=== PATIENT | male | born 1960 | race Caucasian/White ===

== ENCOUNTER 2016-06-10 09:14 | Emergency (ER) | payer OTHER ==
[2016-06-10 09:20] VITALS: TEMP 98.4
--- NOTE | 2016-06-10 09:52 | CPEKG ---
Heart Rate: 64 RR Interval: 938 P-R Interval: 196 QRSD Interval: 84 QT Interval: 396 QTC Interval: 409 P [place]: 67 QRS [place]: 12 T Wave [place]: 46 EKG Severity - ABNORMAL ECG - EKG Impression: SINUS RHYTHM EKG Impression: PROBABLE LEFT ATRIAL ABNORMALITY EKG Impression: NONSPECIFIC T ABNORMALITIES, LATERAL LEADS Electronically Signed By: Kiki Smith 10-Jun-2016 15:19:13
[2016-06-10] MEDS ORDERED: NS 1,000 ML IV ONE (09:53)
[2016-06-10] MEDS ORDERED: ONDANSETRON 4 MG/2 ML VIAL IVP ONE (09:54)
[2016-06-10] MEDS ORDERED: DIAZEPAM 10 MG/2 ML SYR IVP ONE ×2 (09:54→11:30)
[2016-06-10 09:57] LABS: % IMMATURE GRANULYOCYTES 0.4 % (0.0-1.1); ABSOLUTE IMMATURE GRANULOCYTES 0.05 10^3/uL (0.00-0.10); ADD DIFF? NO; ADD MORPH? NO; ADD SCAN? NO; ATYPICAL LYMPHOCYTE FLAG 0 (0-99); FRAGMENT RBC FLAG 0 (0-99); HEMOGLOBIN 18.4 g/dL (13.7-17.5); LEFT SHIFT FLG 0 (0-99); LIPEMIA HEMOLYSIS FLAG 90 (0-99); MEAN CELL HEMOGLOBIN 30.4 pg (27.9-34.1); MEAN CELL HEMOGLOBIN CONCENTR. 35.4 g/dL (32.4-36.7); MEAN PLATELET VOLUME 8.5 fL (8.7-11.7); PLATELET CLUMPS FLAG 10 (0-99); PLATELET COUNT 255 10^3/uL (150-400); RED BLOOD CELL COUNT 6.05 10^6/uL (4.40-6.38); RED CELL DISTRIBUTION WIDTH 12.2 % (11.5-15.2)
[2016-06-10 10:05] LABS: INR 1.08 (0.83-1.16); PROTIME(PATIENT) 13.9 SEC (12.0-15.0)
[2016-06-10 10:06] LABS: APTT 24.5 SEC (23.0-38.0)
[2016-06-10 10:19] LABS: ANION GAP 12 mEq/L (8-16); CALCIUM 9.6 mg/dL (8.5-10.4); CARBON DIOXIDE 25 mEq/l (22-31); CHLORIDE 103 mEq/L (97-110); CREATININE 0.8 mg/dL (0.7-1.3); GLOMERULAR FILTRATION RATE > 60; GLUCOSE 118 mg/dL (70-100); SODIUM 140 mEq/L (134-144)
--- NOTE | 2016-06-10 10:19 | DX ---
Portable AP Upright Chest, at 10:03 AM CLINICAL HISTORY: 55-year-old male with dizziness and nausea for one day. COMPARISON STUDY: None. FINDINGS: Telemetry monitoring lead lines are present. The cardiac and mediastinal silhouette is norm al. There is no focal infiltrate, atelectasis, pleural effusion, peripheral interstitial edema, or pn eumothorax. The osseous structures are age-appropriate. IMPRESSION: No acute abnormality.
--- NOTE | 2016-06-10 10:29 | EDPHY ---
H & P Stated Complaint: dizzy since yesterday Source: Patient, Family Exam Limitations: No limitations - Personal History Current Tetanus/Diphtheria Vaccine: Unsure Current Tetanus Diphtheria and Acellular Pertussis (TDAP): Unsure - Medical/Surgical History Hx Asthma: No Hx Chronic Respiratory Disease: No Hx Diabetes: No Hx Cardiac Disease: No Hx Renal Disease: No Hx Cirrhosis: No Hx Alcoholism: No Hx HIV/AIDS: No Hx Splenectomy or Spleen Trauma: No Other PMH: Kidney stone, HTN, high chol, gerd - Social History Smoking Status: Former smoker HPI/ROS: CHIEF COMPLAINT: Dizziness, nausea HISTORY OF PRESENT ILLNESS: patient complains of sudden onset of dizziness, spinning sensation and nausea Last evening. It lasted for several minutes and has come and gone since then. Currently not present. It is worse when he lays flat. Improves when he stands up and walks. No headache with this. No chest pain or shortness of breath. No vomiting. Did have a chiropractic evaluation on the neck yesterday. Had no complaints prior to that. No other associated complaints or modifying factors. No anticoagulants. REVIEW OF SYSTEMS: Ten systems reviewed and are negative unless otherwise noted in the HPI EXAMINATION General Appearance: Alert, no distress Head: normocephalic, atraumatic Eyes: Pupils equal and round, no conjunctival pallor or injection , no nystagmus ENT, Mouth: Mucous membranes moist, uvula midline. No lesions Neck: Normal inspection, supple, non-tender Respiratory: Lungs are clear to auscultation Cardiovascular: Regular rate and rhythm, pulses intact distally symmetrically Gastrointestinal: Abdomen is soft and nontender Back: non-tender, no bony abnormalities Neurological: A&O, nonfocal, normal gait. Cranial nerves 2-12 grossly intact. Strength is symmetric in all limbs 5/5. Sensory intact bilaterally. No pronator drift. NIH stroke scale is 0 Skin: Warm and dry, no rash Extremities: Nontender, no pedal edema Psychiatric: Mood and affect normal DIFFERENTIAL DIAGNOSES: Including but not limited to MDM: Dizziness and nausea without headache. No chest pain or shortness of breath. His examination is not consistent with vertigo, as the symptoms are worse when he lays supine. He is hemodynamically stable in no acute distress. Giving the chiropractic adjustment yesterday, we immediately ordered an MRI of the brain with and without, as well as an MRA of the neck. He remains comfortable at this time we will premedicate him with Valium due to his claustrophobia. 12:46 p.m. notified by Radiology that the MR of the brain without contrast reveals no infarct. There is no mass or lesion. There may be some prominent perivascular structures in the basal ganglia but no acute findings. He did go back to the MRI department for an MRA following an additional dose of IV benzodiazepines due to his claustrophobia. This was performed out complication and he is resting comfortably at this time. We are awaiting interpretation at this time. 2:10 p.m. notified by Radiology that the MRA of the neck is negative. Specifically there is no evidence of dissection. Patient remains comfortable and hemodynamically stable. He has no new complaints he is feeling much better since time of arrival. He is stable for discharge home and is instructed follow up with his primary care physician for further workup and care. EKG: Interpreted by Dr. Smith. Sinus rhythm with a rate of 80. P are 162, QTC 404, left axis. PVC noted. No ST depression or elevation. T-waves inverted only in AVR. No acute ischemia. Interpretation sinus rhythm with PVC , left axis deviation SUPERVISION: Patient was evaluated in conjunction with the supervising physician. Please see their note for details. (Logan Selby) Constitutional: Initial Vital Signs Temperature (C) 98.4 F 06/10/16 09:16 Heart Rate 76 06/10/16 09:16 Respiratory Rate 16 06/10/16 09:16 Blood Pressure 159/94 H 06/10/16 09:16 O2 Sat (%) 96 06/10/16 09:16 O2 Delivery Mode Nasal Cannula O2 (L/minute) 2 Allergies/Adverse Reactions: ciprofloxacin [From Cipro] Allergy (Verified 06/10/16 09:20) ciprofloxacin HCl [From Cipro] Allergy (Verified 06/10/16 09:20) Home Medications: Medication Instructions Recorded Amoxicillin Trihydrate 2 cap PO DAILY 10 Days 05/22/12 [Amoxicillin 500mg capsule] Finasteride [Propecia] 1 mg PO 05/22/12 Hydrochlorothiazide 25 mg PO DAILY 05/22/12 [Hydrochlorothiazide 25 MG (RX)] Pantoprazole Sodium [Protonix 40mg 40 mg PO DAILY 05/22/12 (RX)] Meclizine HCl [Meclizine HCl 25 mg 25 mg PO BID #0 tab 06/10/16 (RX,OTC)] Medical Decision Making ED Course/Re-evaluation: The patient was evaluated and managed by the physician's physician assistant. My cosignature indicates that I reviewed the chart and I agree with the findings and plan of care as documented. I am the secondary supervising physician. I personally evaluated the patient and agree with the plan. Patient has no focal deficits on exam. Patient consents to MRI imaging. (Kiki Smith) - Data Points Laboratory Results: Laboratory Results 06/10/16 09:50 06/10/16 09:50 06/10/16 09:50 WBC 11.53 H 10^3/uL (3.80-9.50) RBC 6.05 10^6/uL (4.40-6.38) Hgb 18.4 H g/dL (13.7-17.5) Hct 52.0 H % (40.0-51.0) MCV 86.0 fL (81.5-99.8) MCH 30.4 pg (27.9-34.1) MCHC 35.4 g/dL (32.4-36.7) RDW 12.2 % (11.5-15.2) Plt Count 255 10^3/uL (150-400) MPV 8.5 L fL (8.7-11.7) Neut % (Auto) 81.1 H % (39.3-74.2) Lymph % (Auto) 10.3 L % (15.0-45.0) [place] % (Auto) 7.8 % (4.5-13.0) Eos % (Auto) 0.1 L % (0.6-7.6) Baso % (Auto) 0.3 % (0.3-1.7) Nucleat RBC Rel Count 0.0 % (0.0-0.2) Absolute Neuts (auto) 9.35 H 10^3/uL (1.70-6.50) Absolute Lymphs (auto) 1.19 10^3/uL (1.00-3.00) Absolute Monos (auto) 0.90 H 10^3/uL (0.30-0.80) Absolute Eos (auto) 0.01 L 10^3/uL (0.03-0.40) Absolute Basos (auto) 0.03 10^3/uL (0.02-0.10) Absolute Nucleated RBC 0.00 10^3/uL (0-0.01) Immature Gran % 0.4 % (0.0-1.1) Immature Gran # 0.05 10^3/uL (0.00-0.10) PT 13.9 SEC (12.0-15.0) INR 1.08 (0.83-1.16) APTT 24.5 SEC (23.0-38.0) Sodium 140 mEq/L (134-144) Potassium 4.0 mEq/L (3.5-5.2) Chloride 103 mEq/L (97-110) Carbon Dioxide 25 mEq/l (22-31) Anion Gap 12 mEq/L (8-16) BUN 14 mg/dL (7-23) Creatinine 0.8 mg/dL (0.7-1.3) Estimated GFR > 60 Glucose 118 H mg/dL (70-100) Calcium 9.6 mg/dL (8.5-10.4) Troponin I < 0.012 ng/mL (0-0.034) Medications Given: Discontinued Medications Diazepam (Valium Injection) 5 mg IVP EDNOW ONE Stop: 06/10/16 09:55 Last Admin: 06/10/16 10:46 Dose: 5 mg Diazepam (Valium Injection) 5 mg IVP EDNOW ONE Stop: 06/10/16 11:31 Last Admin: 06/10/16 11:30 Dose: 5 mg Sodium Chloride (Ns) 1,000 mls @ 0 mls/hr IV ONCE ONE PRN Reason: Wide Open Stop: 06/10/16 09:54 Last Admin: 06/10/16 10:00 Dose: 1,000 mls Lorazepam (Ativan Injection) 2 mg IVP EDNOW ONE Stop: 06/10/16 12:47 Last Admin: 06/10/16 12:46 Dose: 2 mg Ondansetron HCl (Zofran) 4 mg IVP EDNOW ONE Stop: 06/10/16 09:55 Last Admin: 06/10/16 10:46 Dose: 4 mg Departure - Departure Disposition: Home, Routine, Self-Care Clinical Impression: Dizziness, Nausea Condition: Good Instructions: Dizziness (ED), Lightheadedness (ED) Additional Instructions: Follow-up with primary care physician. Recommend avoid neck manipulation. ER for return of dizziness, worsening symptoms, headache, syncope Referrals: Roderick Romeo DO [Primary Care Provider] - As per Instructions Prescriptions: Meclizine HCl [Meclizine HCl 25 mg (RX,OTC)] 25 mg PO BID #0 tab
[2016-06-10 10:30] LABS: TROPONIN I < 0.012 ng/mL (0-0.034)
[2016-06-10] MEDS ORDERED: GADOBUTROL 10 ML VIAL IVP ONE ×2 (10:59→12:41)
--- NOTE | 2016-06-10 10:59 | CPEKG ---
Heart Rate: 80 RR Interval: 750 P-R Interval: 172 QRSD Interval: 98 QT Interval: 404 QTC Interval: 466 P [place]: 14 QRS [place]: -33 T Wave [place]: 24 EKG Severity - ABNORMAL ECG - EKG Impression: SINUS RHYTHM EKG Impression: VENTRICULAR PREMATURE COMPLEX EKG Impression: LEFT AXIS DEVIATION EKG Impression: LEFT VENTRICULAR HYPERTROPHY Electronically Signed By: Kiki Smith 10-Jun-2016 15:19:13
[2016-06-10] MEDS ORDERED: DIAZEPAM 10 MG/2 ML SYR ONE (11:23)
[2016-06-10] MEDS ORDERED: LORazepam 2 MG/ML INJ ONE (12:43)
[2016-06-10] MEDS ORDERED: LORazepam 2 MG/ML INJ IVP ONE (12:46)
--- NOTE | 2016-06-10 12:51 | MR ---
MRI of the Brain (Without and With Contrast) at 1131 hours Clinical Indication: Dizziness, headache, nausea Technique: T1-weighted images were acquired axially and sagittally from the foramen magnum to the ve rtex. Axial fast inversion recovery, fast T2-weighted, and diffusion-weighted axial images were obta ined without contrast. Postcontrast axial and coronal images with the uneventful intravenous administ ration of 10 mL Gadavist contrast. Findings: The ventricles, cisterns, and sulci are normal without atrophy, hydrocephalus, midline dago ft, herniation, or epidural/subdural hematomas. Benign-appearing venous malformation in the right cau date nucleus. No intracranial hemorrhage or masses. Diffusion-weighted images demonstrate no acute in farct. Cerebellar tonsils are in normal position. Pituitary gland is normal in size. Normal signal fl ow-void in the superior sagittal sinus, basilar artery, and bilateral internal carotid arteries indic ating patency. Postcontrast images demonstrate no enhancing lesions or abnormal leptomeningeal enhanc ement. Paranasal sinuses and mastoid air cells are clear. No brainstem or cerebellar infarcts or enha ncing lesions. Impression: Normal MRI of the brain without and with contrast. Findings and recommendations discussed with Emergency Department physician, Logan Selby PA-C at 124 5 hour, today. Final report concurs with initial preliminary interpretation.
[2016-06-10 14:04] VITALS: RESP 16
--- NOTE | 2016-06-10 14:12 | MR ---
MR Angiogram of the Neck with Contrast at 1131 hours Clinical Indications: Dizziness, recent chiropractic manipulation, suspected dissection. Technique: After a preliminary timing bolus run, a three-dimensional vascular [id number] study w as performed from the upper chest to the skull base, using a total of 10 mL Gadavist intravenously. I mages were manipulated by the radiologist at the computer workstation. Findings: The aortic arch has typical 3-vessel branching anatomy. The common carotid arteries and v ertebral arteries are patent. The common carotid bifurcations demonstrate no evidence of flow-limiti ng stenosis, occlusion, or dissection. The vertebral arteries are patent without evidence of obstruc tion or dissection. Impression: MRA of the cervical carotids and vertebrals demonstrate no evidence of flow-limiting sten osis, occlusion, or dissection. Measurements of carotid stenosis is based on the residual internal carotid diameter with [facility] an Symptomatic Carotid Endarterectomy Trial (NASCET) based stenosis levels Findings and recommendations discussed with Emergency Department physician, Logan Selby PA-C at 140 5 hour, today. Final report concurs with initial preliminary interpretation.
[2016-06-10 14:25] VITALS: BP 148/96; PULSE 79; O2SAT 91
== END 2016-06-10 14:24 | disposition home or self-care (01) ==
DX: R42 Dizziness and giddiness (principal); R11.0 Nausea; I10 Essential (primary) hypertension; Z87.891 Personal history of nicotine dependence
CPT/HCPCS: 96374; A9585; J2405

== ENCOUNTER 2016-06-28 23:11 | Emergency (ER) | payer OTHER ==
[2016-06-28] MEDS ORDERED: LORazepam 2 MG/ML INJ IVP ONE (23:36)
[2016-06-28] MEDS ORDERED: DEXAMETHASONE VARIABLE DOSE IVP/PO ONE (23:36)
--- NOTE | 2016-06-28 23:39 | EDPHY ---
H & P Stated Complaint: ongoing illness, orthopnea HPI/ROS: HPI CHIEF COMPLAINT: Sore throat, trouble swallowing, change in voice HISTORY OF PRESENT ILLNESS: This patient very pleasant 55-year-old male, was recently here in the hospital workup for dizziness, and recently diagnosed with upper respiratory tract infection complete a course of Augmentin, and prednisone. Patient presents to the emergency room this evening stating that we was trying to sleep tonight he felt as if his throat was closing up. Every time he would try to go to sleep he could not tolerated as he felt tightness in his throat. Patient tells me that he recently completed a course of antibiotics and prednisone for upper respiratory tract infection and right ear pain and pressure and vertigo. Tells me the ear pressure, and vertigo has resolved. His main concern is discomfort in his throat, trouble swallowing, change in voice. He denies having a fever. Past Medical History: Hypertension, GERD Past Surgical History: Kidney stone removal Social History: denies use of drugs alcohol tobacco products Family History: Noncontributory ROS REVIEW OF SYSTEMS: A comprehensive 10 point review of systems is otherwise negative aside from elements mentioned in the history of present illness. Exam Constitutional triage nursing summary reviewed, vital signs reviewed, awake/ alert. Eyes normal conjunctivae and sclera, EOMI, PERRLA. HENT oropharynx: Uvula is edematous, erythema present, no signs of Cali's, uvula is midline, soft palate normal, no signs of SAFETY SITTER., moist mucus membranes, no epistaxis, neck supple/ no meningismus, no raccoon eyes. Respiratory no stridor, clear to auscultation bilaterally, normal breath sounds, no respiratory distress, no wheezing. Cardiovascular rate normal, regular rhythm, no murmur, no edema, distal pulses normal. Gastrointestinal soft, non-tender, no rebound, no guarding, normal bowel sounds, no distension, no pulsatile mass. Genitourinary no CVA tenderness. Musculoskeletal no midline vertebral tenderness, full range of motion, no calf swelling, no tenderness of extremities, no meningismus, good pulses, neurovascularly intact. Skin pink, warm, & dry, no rash, skin atraumatic. Neurologic awake, alert and oriented x 3, AAOx3, moves all 4 extremities equally, motor intact, sensory intact, CN II-XII intact, normal cerebellar, normal vision, normal speech. Psychiatric normal mood/affect. Heme/Lymph/Immune no lymphadenopathy. Differential Diagnosis: Includes but is not limited to in a particular order, upper respiratory tract infection, uvulitis, strep pharyngitis, epiglottitis, deep space neck abscess Medical Decision Making: patient had an IV established obtain blood work, patient had a CT scan of the neck soft tissue with IV contrast rule out significant neck abscess retropharyngeal abscess, epiglottitis. Rapid strep will be sent. Re-evaluation: CT scan of the soft tissue neck with IV contrast The results of the study are negative for anything acute specifically no evidence of epiglottitis, no retropharyngeal abscess, no deep space neck abscess. The study was read by Dr. Moraes. I viewed the images myself on the PACS system. ED x-ray chest one view: Negative for acute cardiopulmonary disease. Image interpreted by myself. 0152: Patient is resting comfortably he did sleep here fine in the emergency room in no acute distress. No airway involvement. No progression of symptoms. He is nontoxic and appears well blood work and CT x-ray reviewed. Will place him on Decadron for the next 3-4 days. He is requesting Ativan for anxiety will give him a very limited supply. Understands if he develops fever, vomiting or any worsening symptoms return emergency room. Source: Patient - Personal History Current Tetanus/Diphtheria Vaccine: Unsure - Medical/Surgical History Hx Asthma: No Hx Chronic Respiratory Disease: No Hx Diabetes: No Hx Cardiac Disease: No Hx Renal Disease: No Hx Cirrhosis: No Hx Alcoholism: No Hx HIV/AIDS: No Hx Splenectomy or Spleen Trauma: No Other PMH: PMHx: Kidney stone, HTN, high chol, gerd. PSHx: procedure to remove kidney stone - Social History Smoking Status: Former smoker Constitutional: Initial Vital Signs Temperature (C) 36.7 C 06/28/16 23:15 Heart Rate 83 06/28/16 23:15 Respiratory Rate 16 06/28/16 23:15 Blood Pressure 170/101 H 06/28/16 23:15 O2 Sat (%) 98 06/28/16 23:15 O2 Delivery Mode Room Air Allergies/Adverse Reactions: ciprofloxacin [From Cipro] Allergy (Verified 06/10/16 09:20) ciprofloxacin HCl [From Cipro] Allergy (Verified 06/10/16 09:20) Home Medications: Medication Instructions Recorded Finasteride [Propecia] 1 mg PO 05/22/12 Hydrochlorothiazide 25 mg PO DAILY 05/22/12 [Hydrochlorothiazide 25 MG (RX)] Pantoprazole Sodium [Protonix 40mg 40 mg PO DAILY 05/22/12 (RX)] Aspirin 06/28/16 Lipitor 06/28/16 Dexamethasone [Decadron 4 MG (*)] 4 mg PO DAILY #4 tab 06/29/16 LORazepam [Ativan (*)] 1 mg PO DAILY #4 tab 06/29/16 Medical Decision Making - Data Points Laboratory Results: Laboratory Results 06/28/16 23:45 06/28/16 23:45 06/29/16 06/28/16 Unknown 23:45 WBC 13.87 H 10^3/uL (3.80-9.50) RBC 5.76 10^6/uL (4.40-6.38) Hgb 17.7 H g/dL (13.7-17.5) Hct 50.3 % (40.0-51.0) MCV 87.3 fL (81.5-99.8) MCH 30.7 pg (27.9-34.1) MCHC 35.2 g/dL (32.4-36.7) RDW 12.2 % (11.5-15.2) Plt Count 431 H 10^3/uL (150-400) MPV 8.6 L fL (8.7-11.7) Neut % (Auto) 63.3 % (39.3-74.2) Lymph % (Auto) 24.9 % (15.0-45.0) [place] % (Auto) 9.2 % (4.5-13.0) Eos % (Auto) 1.4 % (0.6-7.6) Baso % (Auto) 0.6 % (0.3-1.7) Nucleat RBC Rel Count 0.0 % (0.0-0.2) Absolute Neuts (auto) 8.76 H 10^3/uL (1.70-6.50) Absolute Lymphs (auto) 3.46 H 10^3/uL (1.00-3.00) Absolute Monos (auto) 1.28 H 10^3/uL (0.30-0.80) Absolute Eos (auto) 0.19 10^3/uL (0.03-0.40) Absolute Basos (auto) 0.09 10^3/uL (0.02-0.10) Absolute Nucleated RBC 0.00 10^3/uL (0-0.01) Immature Gran % 0.6 % (0.0-1.1) Immature Gran # 0.09 10^3/uL (0.00-0.10) PT 13.7 SEC (12.0-15.0) INR 1.06 (0.83-1.16) APTT 24.6 SEC (23.0-38.0) VBG Lactic Acid 1.7 mmol/L (0.7-2.1) Sodium 141 mEq/L (134-144) Potassium 3.9 mEq/L (3.5-5.2) Chloride 105 mEq/L (97-110) Carbon Dioxide 23 mEq/l (22-31) Anion Gap 13 mEq/L (8-16) BUN 17 mg/dL (7-23) Creatinine 0.9 mg/dL (0.7-1.3) Estimated GFR > 60 Glucose 113 H mg/dL (70-100) Calcium 10.1 mg/dL (8.5-10.4) Group A Strep Screen NEGATIVE (NEGATIVE) Group A Strep DNA Pending Medications Given: Discontinued Medications Dexamethasone Sodium Phosphate (Decadron) 10 mg IVP/PO ONCE ONE Stop: 06/28/16 23:37 Last Admin: 06/29/16 00:35 Dose: 10 mg Lorazepam (Ativan Injection) 0.5 mg IVP EDNOW ONE Stop: 06/28/16 23:37 Last Admin: 06/29/16 00:36 Dose: 0.5 mg Departure - Departure Disposition: Home, Routine, Self-Care Clinical Impression: Uvulitis Pharyngitis Qualifiers: Pharyngitis/tonsillitis etiology: unspecified etiology Qualifier Code: (J02.9) Acute pharyngitis, unspecified Condition: Good Instructions: Pharyngitis (ED), Uvulitis (ED) Additional Instructions: 1. Stay well-hydrated drink lots of fluids. 2. Return emergency room if develops any worsening symptoms questions or concerns. Referrals: Roderick Romeo DO [Primary Care Provider] - As per Instructions Prescriptions: LORazepam [Ativan (*)] 1 mg PO DAILY #4 tab Dexamethasone [Decadron 4 MG (*)] 4 mg PO DAILY #4 tab
[2016-06-28 23:58] LABS: % IMMATURE GRANULYOCYTES 0.6 % (0.0-1.1); ABSOLUTE IMMATURE GRANULOCYTES 0.09 10^3/uL (0.00-0.10); ADD DIFF? NO; ADD MORPH? NO; ADD SCAN? NO; ATYPICAL LYMPHOCYTE FLAG 0 (0-99); FRAGMENT RBC FLAG 0 (0-99); HEMATOCRIT 50.3 % (40.0-51.0); HEMOGLOBIN 17.7 g/dL (13.7-17.5); LEFT SHIFT FLG 0 (0-99); LIPEMIA HEMOLYSIS FLAG 90 (0-99); MEAN CELL HEMOGLOBIN 30.7 pg (27.9-34.1); MEAN CELL HEMOGLOBIN CONCENTR. 35.2 g/dL (32.4-36.7); MEAN CELL VOLUME 87.3 fL (81.5-99.8); MEAN PLATELET VOLUME 8.6 fL (8.7-11.7); PLATELET CLUMPS FLAG 10 (0-99); PLATELET COUNT 431 10^3/uL (150-400); RED BLOOD CELL COUNT 5.76 10^6/uL (4.40-6.38); RED CELL DISTRIBUTION WIDTH 12.2 % (11.5-15.2)
[2016-06-29 00:04] LABS: INR 1.06 (0.83-1.16); PROTIME(PATIENT) 13.7 SEC (12.0-15.0)
[2016-06-29 00:07] LABS: ANION GAP 13 mEq/L (8-16); CALCIUM 10.1 mg/dL (8.5-10.4); CARBON DIOXIDE 23 mEq/l (22-31); CHLORIDE 105 mEq/L (97-110); CREATININE 0.9 mg/dL (0.7-1.3); GLOMERULAR FILTRATION RATE > 60; GLUCOSE 113 mg/dL (70-100); POTASSIUM 3.9 mEq/L (3.5-5.2); SODIUM 141 mEq/L (134-144)
[2016-06-29] MEDS ORDERED: DEXAMETHASONE 10 MG/ML VIAL ONE (00:10)
[2016-06-29] MEDS ORDERED: IOPAMIDOL (ISOVUE-300) 100 ML BTL IV ONE (00:14)
[2016-06-29 00:27] LABS: APTT 24.6 SEC (23.0-38.0)
[2016-06-29 02:09] VITALS: BP 129/74; PULSE 70; RESP 18; TEMP 98.2; O2SAT 94
--- NOTE | 2016-06-29 08:25 | CT ---
CT Scan of the Neck With Contrast Clinical Indications: Pharyngitis in a 55-year-old male; evaluate epiglottis. Technique: During machine power IV injection of 90 mL of [id number]-300, multidetector helical CT imaging was performed from the skull base to the upper thoracic inlet. Axial images are obtained at 5 mm int ervals and reformatted at 1.5 mm thickness. The examination is reviewed on the workstation at multipl e window/level settings. Sagittal and coronal reformations are performed. Images are somewhat degrade d by beam hardening artifact from dental hardware. Dose reduction techniques were utilized for this examination. Findings: No adenopathy and no masses are found. No evidence of abscess or neoplasm. The musculatu re is symmetric. The epiglottis does not appear enlarged. The parotid and submandibular glands are no rmal. Impression: Negative for epiglottic abnormality or neck abscess. If symptoms persist, repeat imaging is recommended. The study was performed as an emergency on-call case and discussed by telephone with Dr. Trent at 0 125 hours hours. The final interpretation is concordant with the original communication.
--- NOTE | 2016-06-29 08:39 | DX ---
Portable Chest, 00:26 a.m. History: Cough Comparison: June 10, 2016 Findings: Lungs remain clear without pleural fluid. Heart size and pulmonary vascularity remains norm al. No mass or adenopathy identified. Impression: Stable and negative. No evidence for pneumonia.
== END 2016-06-29 02:10 | disposition home or self-care (01) ==
DX: J02.9 Acute pharyngitis, unspecified (principal); K12.2 Cellulitis and abscess of mouth; I10 Essential (primary) hypertension; Z87.891 Personal history of nicotine dependence; Z79.82 Long term (current) use of aspirin
CPT/HCPCS: 96374; Q9967

== ENCOUNTER 2018-10-23 07:41 | Emergency (ER) | payer OTHER | END 2018-10-23 08:47 | disposition home or self-care (01) ==